=== PATIENT | female | born 1985 | race Asian ===

== ENCOUNTER 2021-02-28 23:05 | Emergency (ER) | payer SELFPAY ==
[~2021-02-28] VITALS: Ht 162.6 cm; Wt 68.5 kg
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
[2021-02-28] MEDS ORDERED: ACETAMINOPHEN ES 500 MG TABLET ONE (23:23)
--- NOTE | 2021-02-28 23:28 | NUR ---
[employer] AT PT'S BEDSIDE
[2021-02-28] MEDS ORDERED: ACETAMINOPHEN ES 500 MG TABLET PO ONE (23:30)
--- NOTE | 2021-02-28 23:38 | NUR ---
PT TAKEN TO CT VIA JUAN
--- NOTE | 2021-02-28 23:45 | NUR ---
PT RETURNED TO ER BED [address]
--- NOTE | 2021-03-01 00:50 | NUR ---
Patient discharged to home in stable condition. Written and verbal after care instructions given. Patient verbalizes understanding of instruction.
[2021-03-01 00:51] VITALS: BP 132/76
== END 2021-03-01 00:52 | disposition home or self-care (01) ==
LOC: ER 23:13
DX: S80.02XA Contusion of left knee, initial encounter (principal); S80.01XA Contusion of right knee, initial encounter; S09.90XA Unspecified injury of head, initial encounter; V43.62XA Car passenger injured in collision with other type car in traffic accident, initial encounter; Y93.89 Activity, other specified; Y92.410 Unspecified street and highway as the place of occurrence of the external cause; Y99.8 Other external cause status
CPT/HCPCS: 70450-TC; 72125-TC; 73564-TC; 73590-TC